=== PATIENT | female | born 1980 | race Caucasian/White ===

== ENCOUNTER 2025-09-17 12:58 | Emergency (ER) | payer SELFPAY ==
--- OUTSIDE RECORDS SUMMARY | 2025-09-17 13:03 | XMS_ITS | Clinical Summary ---
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 Gender Identity Not on file Sexual Orientation Not on file Plan of Treatment Health Maintenance Due Date Last Done Comments Cervical Cancer Screening Pa p Smear (Age 30 to 64) Every 3 Years 1980 Colorectal Cancer Screening Colonoscopy (10 Years) 1980 Annual Physical 1983 Hepatitis C 1998 DTaP, Tdap and Td Vaccines ( 1 - Tdap) 1999 Hepatitis B Vaccines (1 of 3 - 19+ 3-dose series) 1999 HPV Vaccines (1 - 3-dose SCD M series) 2007 Cervical Cancer Screening Pa p with HPV Testing (Age 30 to 64) Every 5 Years 2010 Cervical Cancer Screening with HPV 2010 Mammogram Screening 2020 COVID-19 Vaccine (2024-2 6 season) 2025 Influenza Adult (#1) 2025 Hepatitis A Vaccines Aged Out No long er eligible based on patient's age to complete this topic Meningococcal B Vaccine Aged Out No l onger eligible based on patient's age to complete this topic Meningococcal Vaccine Aged Out No katt helio eligible based on patient's age to complete this topic Pneumococcal Vaccine: Pediat rics (0 to 5 Years) and At-Risk Patients (6 to 49 Years) Aged Out No longer eligible b ased on patient's age to complete this topic RSV Immunizations Under 20 Months Aged Out No longer eligible based on patient's age to complete this topic
[2025-09-17 13:10] VITALS: BP 155/96; PULSE 102; RESP 20; TEMP 36.8; O2SAT 99
--- NOTE | 2025-09-17 13:35 | ED.LOWEXIN ---
HPI - Extremity Injury (Lower) General Chief Complaint: Extremity Injury, Lower Stated Complaint: right heel pain Time Seen by Provider: 09/17/25 13:28 Source: patient and RN notes reviewed Mode of arrival: ambulatory Limitations: no limitations History of Present Illness HPI Narrative: 45-year-old female patient presents today with a 2 month history of right heel pain that has been worsening since onset. Denies numbness or tingling in the foot or toes. Pain increases with standing or walking. She has tried ice and ibuprofen, which helped initially, but is no longer. She also has some insoles in her shoes that she has tried without improvement. No injury or trauma. Related Data Allergies Allergy/AdvReac Type Severity Reaction Status Date / Time No Known Allergies Allergy Verified 09/17/25 13:09 PMFSH Comments At time of signature, I have reviewed and agree with nursing past medical, surgical, social and family history unless otherwise noted. Please see nursing chart for further information. There is no relevant family history pertinent to the presenting complaint Exam Narrative: GENERAL: Well-appearing, well-nourished, and in no acute distress. HEAD: Normocephalic, atraumatic. EYES: EOMI. No redness or drainage. Conjunctivae normal. ENT: Mucous membranes pink and moist. NECK: Normal AROM. CHEST: No respiratory distress. EXTREMITIES: Right foot: Tenderness to the plantar aspect of the heel with palpation. No edema, ecchymosis, erythema, or other deformities or abnormalities noted. Distal sensation intact. Capillary refill normal. Pedal pulse normal. Full range of motion of the ankle in all toes. SKIN: Warm, dry, no rash. Capillary refill normal. Normal skin turgor. NEURO: No focal deficits. Alert and oriented x3. Gait steady. PSYCH: Normal affect. No signs of depression or anxiety. Course Course Level of Care: Express Care Visit Vital Signs Vital signs: Vital Signs Temperature 98.3 F 09/17/25 13:10 Pulse Rate 102 H 09/17/25 13:10 Respiratory Rate 20 09/17/25 13:10 Blood Pressure 155/96 H 09/17/25 13:10 Pulse Oximetry 99 09/17/25 13:10 Oxygen Delivery Room Air 09/17/25 13:10 Temperature 98.3 F 09/17/25 13:10 Pulse Rate 102 H 09/17/25 13:10 Respiratory Rate 20 12/31/25 13:10 Blood Pressure 155/96 H 09/17/25 13:10 Pulse Oximetry 99 09/17/25 13:10 Oxygen Delivery Room Air 09/17/25 13:10 Review MDM MDM Narrative Medical decision making narrative: 45-year-old female patient presents today with a 2 month history of right heel pain that has been worsening since onset. Denies numbness or tingling in the foot or toes. Pain increases with standing or walking. She has tried ice and ibuprofen, which helped initially, but is no longer. She also has some insoles in her shoes that she has tried without improvement. No injury or trauma. Upon exam,Tenderness to the plantar aspect of the heel with palpation. No edema, ecchymosis, erythema, or other deformities or abnormalities noted. Distal sensation intact. Capillary refill normal. Pedal pulse normal. Full range of motion of the ankle in all toes. Exam is consistent with plantar fasciitis. Will place on Medrol Dosepak with recommendation to follow-up with Podiatry. Patient agrees with plan. Vital signs stable. Anticipatory guidance given. Differential Diagnosis Differential Diagnosis: Plantar fasciitis, Achilles tendinitis, tarsal tunnel syndrome, osteoarthritis Critical Care Time Critical Care Time Critical Care Time: No Discharge Plan Discharge Clinical Impression: Plantar fasciitis, right Patient Disposition: Home Condition: Stable Instructions: Plantar Fasciitis (ED), Plantar Fasciitis Exercises (ED) Additional Instructions: Your symptoms are likely due to plantar fasciitis. Please take the Medrol Dosepak as directed. Follow-up with your PCP or Podiatry in 1 week if symptoms are not improving. Patient Language: Ecuadorean Prescriptions: New methylprednisolone [Medrol (Tito)] 4 mg tablets,dose pack See Rx Instructions .ROUTE .COMPLEX Qty: 21 0RF Rx Instructions: orally per package directions Follow-up/Referrals: Bebeto,MD Juliet [Primary Care Provider, Unknown] Time of Disposition: 13:38
== END 2025-09-17 13:42 | disposition home or self-care (01) ==
PROVIDERS: Emergency Provider Nurse Practitioner; PCP Family Medicine
DX: M72.2 Plantar fascial fibromatosis (principal)
CPT/HCPCS: 99203; G0463